=== PATIENT | female | born 1970 | race Caucasian/White ===

== ENCOUNTER 2020-04-09 11:29 | Emergency (ER) | payer OTHER | END 2020-04-09 12:05 | disposition home or self-care (01) | LOC: BURERS 11:29 | DX: S61.012A Laceration without foreign body of left thumb without damage to nail, initial encounter (principal); I10 Essential (primary) hypertension; E78.5 Hyperlipidemia, unspecified; E11.9 Type 2 diabetes mellitus without complications; F32.9 Major depressive disorder, single episode, unspecified; Z79.84 Long term (current) use of oral hypoglycemic drugs; Z79.899 Other long term (current) drug therapy; W26.0XXA Contact with knife, initial encounter | CPT/HCPCS: 99282 ==